=== PATIENT | male | born 1985 | race Caucasian/White ===

== ENCOUNTER 2016-09-19 05:11 | Emergency (ER) | payer OTHER ==
[2016-09-19] MEDS ORDERED: Pantoprazole 40 MG Vial IVPUSH ONE (05:19)
[2016-09-19] MEDS ORDERED: LORazepam 2 MG/ML MDV IVPUSH ONE (05:19)
[2016-09-19] MEDS ORDERED: LORazepam 1 MG Tab PO ONE (05:22)
[2016-09-19] MEDS ORDERED: Pantoprazole 40 MG Tab.CR PO STA (05:23)
--- NOTE | 2016-09-19 05:23 | EDM.PDOC ---
ED HPI GENERAL MEDICAL PROBLEM - General Stated Complaint: CHEST PAIN Time Seen by Provider: 09/19/16 05:19 Source of Information: Reports: Patient - History of Present Illness INITIAL COMMENTS - FREE TEXT/NARRATIVE: HISTORY AND PHYSICAL: History of present illness: [] Patient presents with chest pain he is in no distress, it began after he learned his brother was killed in a car accident a few hours ago he rates pain 2 /10 is not able to define his pain feels like a "lump in his chest"there is no associated diaphoresis or shortness of breath no radiation to arm neck or to No fever nausea vomiting diarrhea constipation shortness breath headache dizziness or palpitation no bowel or urine symptoms Review of systems: As per history of present illness and below otherwise all systems reviewed and negative. Past medical history: As per history of present illness and as reviewed below otherwise noncontributory. Surgical history: As per history of present illness and as reviewed below otherwise noncontributory. Social history: No reported history of drug or alcohol abuse. Family history: As per history of present illness and as reviewed below otherwise noncontributory. Physical exam: HEENT: Atraumatic, normocephalic, pupils reactive, negative for conjunctival pallor or scleral icterus, mucous membranes moist, throat clear, neck supple, nontender, trachea midline. Lungs: Clear to auscultation, breath sounds equal bilaterally, chest nontender. Heart: S1S2, regular, negative for clicks, rubs, or JVD. Abdomen: Soft, nondistended, nontender. Negative for masses or hepatosplenomegaly. Negative for costovertebral tenderness. Pelvis: Stable nontender. Genitourinary: Deferred. Rectal: Deferred. Extremities: Atraumatic, negative for cords or calf pain. Neurovascular unremarkable. Neuro: Awake, alert, oriented. Cranial nerves II through XII unremarkable. Cerebellum unremarkable. Motor and sensory unremarkable throughout. Exam nonfocal. Diagnostics: [] EKG Therapeutics: [] Ativan 1 mg by mouth now Protonix 80 mg by mouth Impression: [] Anxiety about health Normal grief Definitive disposition and diagnosis as appropriate pending reevaluation and review of above. - Related Data Allergies Allergy/AdvReac Type Severity Reaction Status Date / Time No Known Allergies Allergy Verified 09/19/16 05:19 Home Meds: Home Meds . [No Known Home Meds] 09/19/16 [History] ED ROS GENERAL - Review of Systems Review Of Systems: ROS reveals no pertinent complaints other than HPI. ED EXAM, GENERAL - Physical Exam Exam: See Below Course - Orders/Labs/Meds Orders: Active Orders 24 hr Category Date Time Status LORazepam [Ativan] Med 09/19/16 05:19 Once 1 mg IVPUSH ONETIME ONE Pantoprazole [ProTONIX IV] Med 09/19/16 05:19 Once 80 mg IVPUSH .BOLUS ONE Departure - Departure Time of Disposition: 05:22 Disposition: Home, Self-Care 01 Condition: good Clinical Impression: Grief reaction, Anxiety about health - Discharge Information Additional Instructions: Medication as prescribed Do Not drink alcohol or drive a motor vehicle while on this medication Return if symptoms persist or worsen or new concerning symptoms develop Followup with primary care in 2 weeks sooner as needed - My Orders Last 24 Hours: My Active Orders 09/19/16 05:19 LORazepam [Ativan] 1 mg IVPUSH ONETIME ONE Pantoprazole [ProTONIX IV] 80 mg IVPUSH .BOLUS ONE - Assessment/Plan Last 24 Hours: My Active Orders 09/19/16 05:19 LORazepam [Ativan] 1 mg IVPUSH ONETIME ONE Pantoprazole [ProTONIX IV] 80 mg IVPUSH .BOLUS ONE
[2016-09-19 06:00] VITALS: BP 116/68
== END 2016-09-19 05:56 | disposition home or self-care (01) ==
LOC: MW.ED 05:11
DX: F41.8 Other specified anxiety disorders (principal); F43.20 Adjustment disorder, unspecified
CPT/HCPCS: 93005; 99284; A9270; 99283